=== PATIENT | female | born 1980 | race Caucasian/White ===

== ENCOUNTER 2017-03-25 07:52 | Emergency (ER) | payer OTHER ==
[2017-03-25] MEDS ORDERED: Ondansetron HCl/PF 4 MG/2 ML Vial ONE (08:19)
[2017-03-25 09:11] LABS: Band 1 % (5-11); Hemoglobin 11.3 g/dL (12.0-16.0); Lymphocytes 3 % (21-51); MDiff Complete? YES; Mean Corpuscular Hemoglobin 32.8 pg (27.0-31.0); Mean Corpuscular Volume 93.7 fl (81.0-99.0); Mean Platelet Volume 8.3 fL (7.4-10.4); Monocytes 7 % (0-10); Neutrophil 82 % (42-75); PLT Morphology Comment Appears Adequate; Platelet Count 254 thou/uL (130-400); RBC Distribution Width 12.2 % (11.5-14.5); Reactive Lymphocytes 7 % (0-10); Red Blood Cell (RBC) Count 3.45 mill/uL (4.20-5.40); White Blood Cell (WBC) Count 20.2 thou/uL (4.8-10.8)
[2017-03-25] MEDS ORDERED: Morphine 4 MG/ML VIAL ONE (09:27)
[2017-03-25 09:41] LABS: Lactic Acid 0.6 mmol/L (0.5-2.2)
[2017-03-25] MEDS ORDERED: Sodium Chloride 0.9% 1,000 ML BAG ONE (09:47)
[2017-03-25] MEDS ORDERED: HYDROcodone/Acetaminophen 5/325 mg Tablet ONE (10:56)
[2017-03-25] MEDS ORDERED: Acetaminophen 325 MG Suppository ONE (10:57)
[2017-03-25] MEDS ORDERED: Acetaminophen 325 MG TAB ONE (10:57)
[2017-03-25 11:12] LABS: Bilirubin Negative (Negative); Blood, Urine Large (Negative); Glucose, Urine (Dipstick) Negative (Negative); Leukocyte Negative (Negative); Nitrite Negative (Negative); Protein, Urine (Dipstick) Trace mg/dL (Neg-Trace); Urobilinogen 0.2 mg/dL (0.2-1.0); pH, Urine 5.5 (5.0-9.0)
[2017-03-25 11:15] LABS: Clarity Cloudy (Clear)
[2017-03-25 11:19] LABS: RBC/HPF GREATER THAN 50-TNTC HPF (0-3)
[2017-03-25 11:20] LABS: Bacteria/HPF Rare-Few HPF (None Seen); Squamous Epithelial 0-3 HPF (0-3); WBC/HPF 0-3 HPF (0-3)
== END 2017-03-25 11:20 | disposition home or self-care (01) ==
LOC: MADERS 07:52
DX: O03.4 Incomplete spontaneous abortion without complication (principal); Z87.891 Personal history of nicotine dependence
CPT/HCPCS: 81003; 81015; 83605; 84702; 85025; 86900; 86901; 96374; J2270; J2405; J7050